=== PATIENT | male | born 1985 | race Caucasian/White ===

== ENCOUNTER 2021-08-18 09:56 | Outpatient (CLI) | payer BC | END 2021-08-18 09:57 | disposition home or self-care (01) | LOC: CJX 09:56 | PROVIDERS: ATTEND Neurological Surgery | DX: R20.0 Anesthesia of skin (principal); M21.371 Foot drop, right foot; M47.814 Spondylosis without myelopathy or radiculopathy, thoracic region; M43.9 Deforming dorsopathy, unspecified; M47.816 Spondylosis without myelopathy or radiculopathy, lumbar region; M48.061 Spinal stenosis, lumbar region without neurogenic claudication | CPT/HCPCS: 72141; 72146; 72148 ==